=== PATIENT | male | born 1965 | race Caucasian/White ===

== ENCOUNTER 2018-12-06 12:47 | Inpatient (IN) | payer BC ==
[2018-12-06] MEDS ORDERED: SODIUM CHLORIDE 0.9% 1,000 ML IV ONE ×2 (13:34→13:40)
[2018-12-06] MEDS ORDERED: SODIUM CHLORIDE 0.9% 500 ML 500 ML IV ONE (13:40)
[2018-12-06] MEDS ORDERED: ONDANSETRON 4 MG/2 ML VIAL IVP STA (13:42)
--- NOTE | 2018-12-06 13:47 | ED ---
General Adult HPI - General Chief complaint: Dizziness Stated complaint: Vomiting & Diarrhea Time Seen by Provider: 12/06/18 13:00 Source: patient, RN notes reviewed Mode of arrival: wheelchair Limitations: no limitations - History of Present Illness Initial comments: This a 53-year-old male who presents emergency Department complaining of nausea vomiting diarrhea started yesterday. Patient states today he started having black stools as well as black vomitus. Patient states is also lightheaded when he stands. Patient states he has palpitations but he did not take his metoprolol for his A. fib today. Patient denies any fever or chills. Patient denies any abdominal pain. Patient denies chest pain difficulty breathing or shortness of breath. Patient denies any syncopal or near syncopal episode. - Related Data Home Medications Medication Instructions Recorded Confirmed Aspirin [[place] Aspirin EC] 81 mg PO DAILY 12/06/18 12/06/18 Metoprolol Succinate [Toprol XL] 50 mg PO DAILY 12/06/18 12/06/18 Allergies Allergy/AdvReac Type Severity Reaction Status Date / Time No Known Allergies Allergy Verified 12/06/18 13:22 Review of Systems ROS Statement: Those systems with pertinent positive or pertinent negative responses have been documented in the HPI. ROS Other: All systems not noted in ROS Statement are negative. Past Medical History Past Medical History: Atrial Fibrillation History of Any Multi-Drug Resistant Organisms: None Reported Past Surgical History: Adenoidectomy, Hernia Repair, Tonsillectomy Past Psychological History: No Psychological Hx Reported Smoking Status: Current every day smoker Past Alcohol Use History: None Reported Past Drug Use History: None Reported General Exam - General Exam Comments Initial Comments: GENERAL: Patient is well-developed and well-nourished. Patient is nontoxic and well- hydrated and is in mild distress. ENT: Neck is soft and supple. No significant lymphadenopathy is noted. Oropharynx is clear. Moist mucous membranes. Neck has full range of motion without eliciting any pain. EYES: The sclera were anicteric and conjunctiva were pink and moist. Extraocular movements were intact and pupils were equal round and reactive to light. Eyelids were unremarkable. PULMONARY: Unlabored respirations. Good breath sounds bilaterally. No audible rales rhonchi or wheezing was noted. CARDIOVASCULAR: There is a regular rate and rhythm without any murmurs gallops or rubs. ABDOMEN: Soft and nontender with normal bowel sounds. No palpable organomegaly was noted. There is no palpable pulsatile mass. SKIN: Skin is clear with no lesions or rashes and otherwise unremarkable. NEUROLOGIC: Patient is alert and oriented x3. Cranial nerves II through XII are grossly intact. Motor and sensory are also intact. Normal speech, volume and content. Symmetrical smile. MUSCULOSKELETAL: Normal extremities with adequate strength and full range of motion. No lower extremity swelling or edema. No calf tenderness. LYMPHATICS: No significant lymphadenopathy is noted PSYCHIATRIC: Normal psychiatric evaluation. Limitations: no limitations Course Vital Signs 12/06/18 12:56 Temperature 97.5 F L Pulse Rate 80 Respiratory 18 Rate Blood Pressure 94/66 O2 Sat by Pulse 100 Oximetry Medical Decision Making - Medical Decision Making EKG shows A. fib with rapid ventricular response at 152 bpm QRS is 68 QT interval is 290 QTC is 461. Patient's EKG shows no ST segment elevation or depression or T wave abnormalities are noted. I started the patient Cardizem because of his heart rate of 160 beats a minute. Patient was orthostatic positive psychiatric the patient another liter of fluid in addition to the 850 mL he received in route. Patient was guaiac positive Spoke with Dr. Salguero he agreed to admit the patient admitted the patient I did CBCs every 6 hours I consult the GI and cardiology. - Lab Data Result diagrams: 12/06/18 13:30 12/06/18 13:30 Lab Results 12/06/18 12/06/18 12/06/18 Range/Units 13:30 13:30 13:30 WBC 14.0 H (3.8-10.6) k/uL RBC 4.45 (4.30-5.90) m/uL Hgb 14.4 (13.0-17.5) gm/dL Hct 44.0 (39.0-53.0) % MCV 98.9 (80.0-100.0) fL MCH 32.4 (25.0-35.0) pg MCHC 32.8 (31.0-37.0) g/dL RDW 12.9 (11.5-15.5) % Plt Count 369 (150-450) k/uL Neutrophils % 81 % Lymphocytes % 13 % Monocytes % 4 % Eosinophils % 1 % Basophils % 0 % Neutrophils # 11.3 H (1.3-7.7) k/uL Lymphocytes # 1.8 (1.0-4.8) k/uL Monocytes # 0.6 (0-1.0) k/uL Eosinophils # 0.1 (0-0.7) k/uL Basophils # 0.1 (0-0.2) k/uL PT 11.0 (9.0-12.0) sec INR 1.0 (<1.2) APTT 23.3 (22.0-30.0) sec Sodium 139 (137-145) mmol/L Potassium 5.2 H (3.5-5.1) mmol/L Chloride 107 (98-107) mmol/L Carbon Dioxide 22 (22-30) mmol/L Anion Gap 10 mmol/L BUN 62 H (9-20) mg/dL Creatinine 0.85 (0.66-1.25) mg/dL Est GFR (CKD-EPI)AfAm >90 (>60 ml/min/1.73 sqM) Est GFR (CKD-EPI)NonAf >90 (>60 ml/min/1.73 sqM) Glucose 123 H (74-99) mg/dL Calcium 9.4 (8.4-10.2) mg/dL Magnesium 1.9 (1.6-2.3) mg/dL Total Bilirubin 0.7 (0.2-1.3) mg/dL AST 18 (17-59) U/L ALT 26 (21-72) U/L Alkaline Phosphatase 47 (38-126) U/L Troponin I (0.000-0.034) ng/mL Total Protein 6.8 (6.3-8.2) g/dL Albumin 3.9 (3.5-5.0) g/dL Stool Occult Blood (Negative) 12/06/18 12/06/18 Range/Units 13:30 15:05 WBC (3.8-10.6) k/uL RBC (4.30-5.90) m/uL Hgb (13.0-17.5) gm/dL Hct (39.0-53.0) % MCV (80.0-100.0) fL MCH (25.0-35.0) pg MCHC (31.0-37.0) g/dL RDW (11.5-15.5) % Plt Count (150-450) k/uL Neutrophils % % Lymphocytes % % Monocytes % % Eosinophils % % Basophils % % Neutrophils # (1.3-7.7) k/uL Lymphocytes # (1.0-4.8) k/uL Monocytes # (0-1.0) k/uL Eosinophils # (0-0.7) k/uL Basophils # (0-0.2) k/uL PT (9.0-12.0) sec INR (<1.2) APTT (22.0-30.0) sec Sodium (137-145) mmol/L Potassium (3.5-5.1) mmol/L Chloride (98-107) mmol/L Carbon Dioxide (22-30) mmol/L Anion Gap mmol/L BUN (9-20) mg/dL Creatinine (0.66-1.25) mg/dL Est GFR (CKD-EPI)AfAm (>60 ml/min/1.73 sqM) Est GFR (CKD-EPI)NonAf (>60 ml/min/1.73 sqM) Glucose (74-99) mg/dL Calcium (8.4-10.2) mg/dL Magnesium (1.6-2.3) mg/dL Total Bilirubin (0.2-1.3) mg/dL AST (17-59) U/L ALT (21-72) U/L Alkaline Phosphatase (38-126) U/L Troponin I 0.014 (0.000-0.034) ng/mL Total Protein (6.3-8.2) g/dL Albumin (3.5-5.0) g/dL Stool Occult Blood Positive (Negative) Critical Care Time Critical Care Time: Yes Total Critical Care Time: 35 Disposition Clinical Impression: Atrial fibrillation with rapid ventricular response, Orthostatic hypotension, GI bleed Disposition: ADMITTED IP TO THIS HOSP Referrals: Lj Ballesteros DO [Primary Care Provider] - 1-2 days Time of Disposition: 15:53
[2018-12-06 13:52] LABS: Basophils # (A) 0.1 k/uL (0-0.2); Basophils % (A) 0 %; Eosinophils # (A) 0.1 k/uL (0-0.7); Eosinophils % (A) 1 %; HGB 14.4 gm/dL (13.0-17.5); Lymphocytes # (A) 1.8 k/uL (1.0-4.8); Lymphocytes % (A) 13 %; MCH 32.4 pg (25.0-35.0); MCHC 32.8 g/dL (31.0-37.0); MCV 98.9 fL (80.0-100.0); Mean Platelet Volume 7.9; Monocytes # (A) 0.6 k/uL (0-1.0); Monocytes % (A) 4 %; Neutrophils # (A) 11.3 k/uL (1.3-7.7); Neutrophils % (A) 81 %; Platelet Count 369 k/uL (150-450); RBC 4.45 m/uL (4.30-5.90); RDW 12.9 % (11.5-15.5)
[2018-12-06 14:01] LABS: ALT 26 U/L (21-72); AST 18 U/L (17-59); Albumin 3.9 g/dL (3.5-5.0); Alkaline Phosphatase 47 U/L (38-126); Anion Gap 10 mmol/L; Blood Urea Nitrogen 62 mg/dL (9-20); Calcium 9.4 mg/dL (8.4-10.2); Carbon Dioxide 22 mmol/L (22-30); Chloride 107 mmol/L (98-107); Glucose 123 mg/dL (74-99); Magnesium 1.9 mg/dL (1.6-2.3); Sodium 139 mmol/L (137-145); Total Bilirubin 0.7 mg/dL (0.2-1.3); Total Protein 6.8 g/dL (6.3-8.2)
[2018-12-06 14:02] LABS: Partial Thromboplastin Time 23.3 sec (22.0-30.0)
[2018-12-06] MEDS: DILTIAZEM 125 MG in SODIUM CHLORIDE 0.9% 100 ML IV SCH (14:02)
[2018-12-06 14:08] LABS: Potassium 5.2 mmol/L (3.5-5.1)
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
[2018-12-06 22:25] LABS: Basophils % (A) 0 %; Eosinophils # (A) 0.1 k/uL (0-0.7); Eosinophils % (A) 1 %; HCT 34.3 % (39.0-53.0); HGB 11.7 gm/dL (13.0-17.5); Lymphocytes # (A) 3.4 k/uL (1.0-4.8); Lymphocytes % (A) 36 %; MCH 33.6 pg (25.0-35.0); MCHC 34.1 g/dL (31.0-37.0); MCV 98.7 fL (80.0-100.0); Mean Platelet Volume 8.1; Monocytes # (A) 0.5 k/uL (0-1.0); Monocytes % (A) 5 %; Neutrophils # (A) 5.4 k/uL (1.3-7.7); Neutrophils % (A) 56 %; Platelet Count 304 k/uL (150-450); RBC 3.48 m/uL (4.30-5.90); RDW 13.6 % (11.5-15.5); WBC 9.6 k/uL (3.8-10.6)
[2018-12-07] MEDS: PANTOPRAZOLE 40 MG/10 ML VIAL IVP SCH ×2 (01:50→09:02)
[2018-12-07 07:00] LABS: Basophils % (A) 0 %; Eosinophils # (A) 0.1 k/uL (0-0.7); Eosinophils % (A) 1 %; HCT 35.3 % (39.0-53.0); HGB 10.9 gm/dL (13.0-17.5); Lymphocytes # (A) 2.3 k/uL (1.0-4.8); Lymphocytes % (A) 29 %; MCH 31.3 pg (25.0-35.0); MCHC 30.8 g/dL (31.0-37.0); MCV 101.6 fL (80.0-100.0); Macrocytosis Slight; Mean Platelet Volume 7.5; Monocytes # (A) 0.4 k/uL (0-1.0); Monocytes % (A) 5 %; Neutrophils # (A) 4.9 k/uL (1.3-7.7); Neutrophils % (A) 63 %; Platelet Count 307 k/uL (150-450); RBC 3.48 m/uL (4.30-5.90); RDW 13.1 % (11.5-15.5); WBC 7.9 k/uL (3.8-10.6)
[2018-12-07 07:11] LABS: Anion Gap 3 mmol/L; Blood Urea Nitrogen 32 mg/dL (9-20); Calcium 8.5 mg/dL (8.4-10.2); Carbon Dioxide 26 mmol/L (22-30); Chloride 111 mmol/L (98-107); Glucose 92 mg/dL (74-99); Potassium 4.3 mmol/L (3.5-5.1); Sodium 140 mmol/L (137-145)
--- NOTE | 2018-12-07 08:54 | P.CRDCN ---
History of Present Illness History of present illness: This is Dr. Khan dictating a consult on this patient The patient was interviewed and examined by me IMPRESSION / ASSESSMENT: Patient presented with GI bleeding. His a history of atrial fibrillation and is on anticoagulation but denies any hypertension or coronary artery disease PLAN: GI workup Hold anticoagulation Watch for hypertension, TSH level, 2-D echo and Doppler study to assess cardiac structure and function Preliminary calculation of CUATE VASC or Rate control of atrial fibrillation to continue. Currently on IV Cardizem drip HPI Patient presented to the ER with nausea vomiting diarrhea and black stools and black vomitus. He was lightheaded when he stood up. He complained of palpitations but he did not take his metoprolol for atrial fibrillation. He was diagnosed with atrial fibrillation RVR and orthostatic hypotension and hematocrit for GI bleeding According to the patient he was vomiting very dark material is normal and was also passing Dr. stools. He had severe abdominal discomfort predominantly in the left side about a week back Denies any chest discomfort or undue shortness of breath but he was Diffley dizzy and weak for the last 2-3 days ROS: No fever chills or rigors, no cough, phlegm or expectoration, no nausea, vomiting or diarrhea, no hematuria, dysuria, no musculoskeletal complaints, no strokes or seizures, no skin lesions. EXAMINATION: Breath sounds are clear no rhonchi no crackles rhythm is irregular Normal S1 normal S2 no murmurs or gallops no rub Abdomen is soft there's no tenderness at this time Extremities warm no edema No orthopnea PND REVIEW OF LABS, ECG & MEDICAL DATA twelve-lead ECG shows atrial fibrillation with RVR at 152 beats a minute Chest x-ray does not show any acute cardiac pulmonary process according to the report Hemoglobin 11.7, potassium 4.3, BUN 32 creatinine 0.81, normal troponin Past Medical History Past Medical History: Atrial Fibrillation History of Any Multi-Drug Resistant Organisms: None Reported Past Surgical History: Adenoidectomy, Hernia Repair, Tonsillectomy Past Psychological History: No Psychological Hx Reported Smoking Status: Current every day smoker Past Alcohol Use History: None Reported Past Drug Use History: None Reported Medications and Allergies Home Medications Medication Instructions Recorded Confirmed Type Aspirin [[place] Aspirin EC] 81 mg PO DAILY 12/06/18 12/06/18 History Metoprolol Succinate [Toprol XL] 50 mg PO DAILY 12/06/18 12/06/18 History Allergies Allergy/AdvReac Type Severity Reaction Status Date / Time No Known Allergies Allergy Verified 12/06/18 13:22 Physical Exam Vitals: Vital Signs Temp Pulse Pulse Resp BP BP Pulse Ox 12/07/18 04:49 98.3 F 83 18 98/60 98 12/07/18 00:11 95 18 97/65 98 12/06/18 20:04 98.6 F 18 102/68 98 12/06/18 18:36 112 H 18 98/73 98 12/06/18 18:00 113 H 16 97/66 97 12/06/18 17:15 99 21 100/67 100 12/06/18 17:00 112 H 19 96/81 98 12/06/18 16:45 106 H 22 100/80 100 12/06/18 16:30 96 17 97/72 99 12/06/18 16:15 121 H 18 104/74 97 12/06/18 16:00 107 H 20 111/67 98 12/06/18 15:45 138 H 18 112/73 99 12/06/18 15:30 129 H 17 112/73 99 12/06/18 15:15 115 H 22 116/95 100 12/06/18 15:00 113 H 22 100 12/06/18 14:45 140 H 20 111/81 98 12/06/18 14:30 120 H 18 100 12/06/18 14:15 144 H 16 99 12/06/18 14:00 123 H 19 100 12/06/18 13:45 140 H 20 98/80 100 12/06/18 13:30 165 H 18 104/74 99 12/06/18 13:20 147 H 18 104/74 98 12/06/18 12:56 97.5 F L 80 18 94/66 100 Intake and Output 12/06/18 12/07/18 12/07/18 22:59 06:59 14:59 Intake Total 120 Output Total 600 Balance -480 Intake: Oral 120 Output: Urine 600 Other: # Voids 2 Weight 77.1 kg Results 12/07/18 06:40 12/07/18 06:40 Cardiac Enzymes 12/06/18 12/06/18 Range/Units 13:30 13:30 AST 18 (17-59) U/L Troponin I 0.014 (0.000-0.034) ng/mL Coagulation 12/06/18 Range/Units 13:30 PT 11.0 (9.0-12.0) sec APTT 23.3 (22.0-30.0) sec CBC 12/06/18 12/06/18 Range/Units 13:30 21:55 WBC 14.0 H 9.6 (3.8-10.6) k/uL RBC 4.45 3.48 L (4.30-5.90) m/uL Hgb 14.4 11.7 L (13.0-17.5) gm/dL Hct 44.0 34.3 L (39.0-53.0) % Plt Count 369 304 (150-450) k/uL Comprehensive Metabolic Panel 12/06/18 12/07/18 Range/Units 13:30 06:40 Sodium 139 140 (137-145) mmol/L Potassium 5.2 H 4.3 (3.5-5.1) mmol/L Chloride 107 111 H (98-107) mmol/L Carbon Dioxide 22 26 (22-30) mmol/L BUN 62 H 32 H (9-20) mg/dL Creatinine 0.85 0.81 (0.66-1.25) mg/dL Glucose 123 H 92 (74-99) mg/dL Calcium 9.4 8.5 (8.4-10.2) mg/dL AST 18 (17-59) U/L ALT 26 (21-72) U/L Alkaline Phosphatase 47 (38-126) U/L Total Protein 6.8 (6.3-8.2) g/dL Albumin 3.9 (3.5-5.0) g/dL Current Medications Generic Name Dose Route Start Last Admin Trade Name Freq PRN Reason Stop Dose Admin Diltiazem HCl 125 mg/ Sodium 125 mls @ 5 mls/hr 12/06/18 13:45 12/06/18 14:02 Chloride IV 5 mg/hr .Q24H EARL 5 mls/hr Administration 5 MG/HR Metoprolol Succinate 50 mg 12/07/18 09:00 Toprol Xl PO DAILY EARL Pantoprazole Sodium 40 mg 12/07/18 00:45 12/07/18 01:50 Protonix IVP 40 mg DAILY EARL Administration Intake and Output 12/06/18 12/07/1812/07/19 22:59 06:59 14:59 Intake Total 120 Output Total 600 Balance -480 Intake: Oral 120 Output: Urine 600 Other: # Voids 2 Weight 77.1 kg 12/06/18 21:55 12/07/18 06:40
[2018-12-07] MEDS: METOPROLOL SUCCINATE (ER) 50 MG TAB.ER.24H PO SCH (09:02)
[2018-12-07] MEDS: DILTIAZEM 125 MG in SODIUM CHLORIDE 0.9% 100 ML IV SCH (09:02)
--- NOTE | 2018-12-07 12:58 | ECHOF ---
Referral Reason:afib MEASUREMENTS -------- HEIGHT: 193.0 cm WEIGHT: 76.7 kg BP: 98/60 RVIDd: 2.7 cm (< 3.3) IVSd: 1.3 cm (0.6 - 1.1) LVIDd: 3.8 cm (3.9 - 5.3) LVPWd: 1.3 cm (0.6 - 1.1) IVSs: 1.6 cm LVIDs: 2.7 cm LVPWs: 1.6 cm LAESV Index (A-L): 34.38 ml/m Ao Diam: 2.9 cm (2.0 - 3.7) AV Cusp: 1.9 cm (1.5 - 2.6) LA Diam: 3.0 cm (2.7 - 3.8) EPSS: 0.2 cm RAP: 5.00 mmHg RVSP: 37.13 mmHg MV EF SLOPE: 123.09 mm/s (70 - 150) MV EXCURSION: 1.89 cm (> 18.000) FINDINGS -------- Atrial fibrillation. This was a technically good study. The left ventricular size is normal. There is mild concentric left ventricular hypertrophy. Overa ll left ventricular systolic function is low-normal with, an EF between 50 - 55 %. A tubular struct ure noted running posterior laterally to the left atrium and seemed to be connected to the right atri um. This most probably a venous structure suggestive of persistent left superior vena cava or mcghee ry sinus. The right ventricle is normal in size and function. LA is moderately dilated 34-39 ml/m2 Thin echo bright structure in left atrium near left atrial prudencio endage. RA appears enlarged. Aortic valve is trileaflet and is mildly thickened. There is no evidence of aortic regurgitation. There is no evidence of aortic stenosis. The mitral valve leaflets are mildly thickened. Mild mitral regurgitation is present. Moderate to severe tricuspid regurgitation present. There is mild pulmonary hypertension. The rig ht ventricular systolic pressure, as measured by Doppler, is 37.13mmHg. Trace/mild (physiologic) pulmonic regurgitation. The aortic root size is normal. Normal inferior vena cava with normal inspiratory collapse consistent with estimated right atrial pre ssure of 5 mmHg. There is no pericardial effusion. CONCLUSIONS -------- 1. Atrial fibrillation. 2. This was a technically good study. 3. The left ventricular size is normal. 4. There is mild concentric left ventricular hypertrophy. 5. Overall left ventricular systolic function is low-normal with, an EF between 50 - 55 %. 6. A tubular structure noted running posterior laterally to the left atrium and seemed to be connecte d to the right atrium. This most probably a venous structure suggestive of persistent left superior vena cava or coronary sinus. 7. LA is moderately dilated 34-39 ml/m2 8. Thin echo bright structure in left atrium near left atrial appendage. 9. RA appears enlarged. 10. Aortic valve is trileaflet and is mildly thickened. 11. The mitral valve leaflets are mildly thickened. 12. Mild mitral regurgitation is present. 13. Moderate to severe tricuspid regurgitation present. 14. There is mild pulmonary hypertension. 15. The right ventricular systolic pressure, as measured by Doppler, is 37.13mmHg. 16. Trace/mild (physiologic) pulmonic regurgitation. 17. The aortic root size is normal. 18. There is no pericardial effusion. INSTRUCTOR FLYING: Hima Manuel RDCS
--- NOTE | 2018-12-07 21:50 | P.HPIM ---
History of Present Illness H&P Date: 12/06/18 Chief Complaint: Diarrhea and coffee-ground emesis Patient is a 53-year-old male with a known history of paroxysmal atrial fibrillation on aspirin currently came to ER with complaints of nausea and vomiting and diarrhea since yesterday. Patient has been having darker stools and also vomiting is dark-colored/coffee-ground colored. Patient denied any complaints of chest pain. Patient has been having palpitations and lightheadedness especially when he stands and started having vomiting when he went to work today. Denied any current fever or chills. No complaints of s hortness of breath. Denied any fall or syncopal episode. Patient did have cough last week and stopped about 3-4 days ago. No other recent infections. No recent antibiotic use. Patient does smoke on everyday basis. d Review of Systems Constitutional: Patient denies any fever or chills . No generalized weakness or weight loss. Abdomen: Patient denied nausea vomiting and diarrhea and abdominal pain. Cardiovascular: Patient denied any chest pain. No shortness of breath. Patient does have palpitations. Lightheadedness. No legs leg swelling Respiratory: patient denied any cough is from production. No shortness of breath Neurologic: Patient denied any numbness or tingling headache. Musculoskeletal: Patient denies any complaints of joint swelling or deformity. Skin: Negative Psychiatric: Negative Endocrine: No heat or cold intolerance. No recent weight gain. Genitourinary: No dysuria or hematuria. All other 14 point ROS negative except the above Past Medical History Past Medical History: Atrial Fibrillation History of Any Multi-Drug Resistant Organisms: None Reported Past Surgical History: Adenoidectomy, Hernia Repair, Tonsillectomy Past Psychological History: No Psychological Hx Reported Smoking Status: Current every day smoker Past Alcohol Use History: None Reported Past Drug Use History: None Reported Medications and Allergies Home Medications Medication Instructions Recorded Confirmed Type Aspirin [[place] Aspirin EC] 81 mg PO DAILY 12/06/18 12/06/18 History Metoprolol Succinate [Toprol XL] 50 mg PO DAILY 12/06/18 12/06/18 History Allergies Allergy/AdvReac Type Severity Reaction Status Date / Time No Known Allergies Allergy Verified 12/06/18 13:22 Physical Exam Vitals: Vital Signs Temp Pulse Resp BP Pulse Ox 12/06/18 18:36 112 H 18 98/73 98 04/01/19 18:00 113 H 16 97/66 97 12/06/18 17:15 99 21 100/67 100 12/06/18 17:00 112 H 19 96/81 98 12/06/18 16:45 106 H 22 100/80 100 12/06/18 16:30 96 17 97/72 99 12/06/18 16:15 121 H 18 104/74 97 12/06/18 16:00 107 H 20 111/67 98 12/06/18 15:45 138 H 18 112/73 99 12/06/18 15:30 129 H 17 112/73 99 12/06/18 15:15 115 H 22 116/95 100 12/06/18 15:00 113 H 22 100 12/06/18 14:45 140 H 20 111/81 98 12/06/18 14:30 120 H 18 100 12/06/18 14:15 144 H 16 99 12/06/18 14:00 123 H 19 100 12/06/18 13:45 140 H 20 98/80 100 12/06/18 13:30 165 H 18 104/74 99 12/06/18 13:20 147 H 18 104/74 98 12/06/18 12:56 97.5 F L 80 18 94/66 100 Intake and Output 12/06/18 12/06/18 12/06/18 06:59 14:59 22:59 Other: Weight 83.915 kg PHYSICAL EXAMINATION: Patient is lying in the bed comfortably, no acute distress, awake alert and oriented. Lethargic and weak. HEENT: Normocephalic. Neck is supple. Pupils reactive. Nostrils clear. Oral cavity is moist. Ears reveal no drainage. Neck reveals no JVD, carotid bruits, or thyromegaly. CHEST EXAMINATION: Trachea is central. Symmetrical expansion. Lung carty clear to auscultation and percussion. CARDIAC: Normal S1, S2 with no gallops. No murmurs . Irregular rhythm ABDOMEN: Soft. Bowel sounds normal. No organomegaly. No abdominal bruits. Extremities: reveal no edema. No clubbing or cyanosis Neurologically awake, alert, oriented x3 with well-coordinated movements. No focal deficits noted Skin: No rash or skin lesions. Psychiatric: Coperative. Nonsuicidal Musculoskeletal: No joint swelling or deformity. Normal range of motion. Results CBC & Chem 7: 12/07/18 06:40 12/07/18 06:40 Labs: Abnormal Lab Results - Last 24 Hours (Table) 12/06/18 12/06/18 Range/Units 13:30 13:30 WBC 14.0 H (3.8-10.6) k/uL Neutrophils # 11.3 H (1.3-7.7) k/uL Potassium 5.2 H (3.5-5.1) mmol/L BUN 62 H (9-20) mg/dL Glucose 123 H (74-99) mg/dL Thrombosis Risk Factor Assmnt - DVT/VTE Prophylaxis DVT/VTE Prophylaxis: Pharmacologic Prophylaxis ordered Assessment and Plan Assessment: Acute GI bleed with dark colored vomiting and dark stools. Acute blood loss anemia Atrial fibrillation with rapid ventricular rate. Paroxysmal atrial fibrillation on aspirin at home Mild hyperkalemia likely due to GI bleed DVT prophylaxis with SCDs Plan: Patient will be continued on IV hydration with normal saline. On Cardizem drip and was also started on Protonix IV daily. Patient will be started back on metoprolol XL 50 mg daily. Patient is noncompliant with medications at home. Will hold aspirin. Not sure if patient is taking any other anticoagulants. Follow up closely monitor H&H. GI and cardiology will be consulted. Further recommendations based on the clinical course. Smoking cessation has been counseled extensively. Time with Patient: Greater than 30
--- NOTE | 2018-12-07 22:53 | P.CONS ---
History of Present Illness - Reason for Consult Consult date: 12/07/18 GI bleed Requesting physician: Valentin Salguero - Chief Complaint Nausea, vomiting, diarrhea - History of Present Illness 63-year-old male with a medical history significant for atrial fibrillation who presented with complaints of nausea, vomiting and diarrhea. The patient reports passing dark black vomitus on numerous occasions. He is unclear if the vomit was initially normal in color and then turn black or was dark initially. He also reports multiple bowel movements which were dark and black without any gross blood seen. No bowel movements reported today. He denies any prior history of ulcers or regular NSAID use. He denies any history of anemia. He denies any abdominal pain. No familial history of GI tract malignancies. The patient denies ever requiring an upper endoscopy or colonoscopy in the past. On presentation to the hospital stool was positive for occult blood, hemoglobin was 11.7 and subsequently trended to 10.9. INR was found to be 1, alkaline phosphatase 47, total bilirubin 0.7, AST 18 and ALT 26. Review of Systems REVIEW OF SYSTEMS: CONSTITUTIONAL: Denies any fevers, chills, weight change or fatigue. CARDIOVASCULAR: Denies any chest pain, palpitations high or low blood pressures RESPIRATORY: Denies any shortness of breath, hemoptysis or cough. GENITOURINARY: No dysuria or hematuria. MUSCULOSKELETAL: No weakness reported. SKIN: Denies any new rashes or lesions, jaundice or pallor. PSYCHIATRIC: Denies any depression or anxiety. NEUROLOGY: Denies headache, denies any new focal deficits. EARS/NOSE/THROAT: No recent hearing change, congestion, nasal discharge or sore throat. EYES: No pain in eyes, discharge or change in vision. GASTROINTESTINAL: As per HPI. Past Medical History Past Medical History: Atrial Fibrillation History of Any Multi-Drug Resistant Organisms: None Reported Past Surgical History: Adenoidectomy, Hernia Repair, Tonsillectomy Past Psychological History: No Psychological Hx Reported Smoking Status: Current every day smoker Past Alcohol Use History: None Reported Past Drug Use History: None Reported Additional History: Family history: Reviewed with the patient and noncontributory to current medical presentation. Medications and Allergies Home Medications Medication Instructions Recorded Confirmed Type Aspirin [Orange Aspirin EC] 81 mg PO DAILY 12/06/18 12/06/18 History Metoprolol Succinate [Toprol XL] 50 mg PO DAILY 12/06/18 12/06/18 History Allergies Allergy/AdvReac Type Severity Reaction Status Date / Time No Known Allergies Allergy Verified 12/06/18 13:22 Physical Exam Vitals: Vital Signs Temp Pulse Pulse Resp BP Pulse Ox 12/07/18 20:00 98.8 F 79 80 17 98/58 98 12/07/18 16:41 85 16 105/65 12/07/18 16:02 100 12/07/18 15:36 80 18 12/07/18 15:34 97.7 F 80 18 94/54 100 12/07/18 12:16 98 12/07/18 12:00 98.0 F 83 18 100/61 98 12/07/18 08:00 98.2 F 81 80 18 96/60 98 12/07/18 04:49 98.3 F 83 18 98/60 98 12/07/18 00:11 95 18 97/65 98 Intake and Output 12/07/18 12/07/18 12/07/18 06:59 14:59 22:59 Intake Total 747 956 1785 Output Total 600 400 Balance -480 -195 1010 Intake: IV 10 10 Invasive Line 1 10 10 Intake, IV Titration 95 Amount Diltiazem 125 mg In 95 Sodium Chloride 0.9% 100 ml @ 5 MG/HR 5 mls/hr IV .Q24H [facility] Rx#:[id number] Oral [phone] Output: Urine 600 400 Other: Voiding Method Toilet # Voids 2 1 Weight 77.1 kg On physical examination, patient appears comfortable in no apparent distress. HEAD: Normocephalic, atraumatic. EYES: No scleral icterus. No conjunctival injection. MOUTH: No lesions, tongue midline. NECK: Trachea midline, no gross abnormalities. CHEST: Clear to auscultation with no wheezing or rhonchi appreciated. HEART: S1-S2 appreciated. ABDOMEN: Soft, obese. Bowel sounds are positive. No organomegaly. No guarding or rigidity. EXTREMITIES: No pedal edema. SKIN: No rashes, no jaundice. NEUROLOGIC: Alert and oriented x3. No focal deficits. Results CBC & Chem 7: 12/07/18 06:40 12/07/18 06:40 Labs: Abnormal Lab Results - Last 24 Hours (Table) 12/07/18 12/07/18 Range/Units 06:40 06:40 RBC 3.48 L (4.30-5.90) m/uL Hgb 10.9 L (13.0-17.5) gm/dL Hct 35.3 L (39.0-53.0) % MCV 101.6 H (80.0-100.0) fL MCHC 30.8 L (31.0-37.0) g/dL Chloride 111 H (98-107) mmol/L BUN 32 H (9-20) mg/dL Chest x-ray: report reviewed (X-ray chest with no acute process noted.) Assessment and Plan (1) GI bleed Narrative/Plan: 53-year-old male presenting with multiple episodes of dark emesis and dark colored stool with concern for upper GI bleed with differential including peptic ulcer disease, esophagitis/gastritis, AVM or other etiology. Current Visit: Yes Status: Acute Code(s): K92.2 - GASTROINTESTINAL HEMORRHAGE, UNSPECIFIED SNOMED Code(s): 34576606 (2) Anemia associated with acute blood loss Current Visit: Yes Status: Acute Code(s): D62 - ACUTE POSTHEMORRHAGIC ANEMIA SNOMED Code(s): 171066618 Plan: Supportive care Clear liquid diet, nothing by mouth after midnight Continue to monitor hemoglobin and hematocrit and transfuse as needed Continue to monitor further signs or symptoms of GI bleeding Avoid NSAID use Plan for upper endoscopy tomorrow for further evaluation Patient will need to follow-up for colonoscopy in the outpatient setting Thank you for allowing us to participate in the care of the patient we will continue to follow
[2018-12-08 07:20] LABS: HCT 31.8 % (39.0-53.0); HGB 10.1 gm/dL (13.0-17.5); MCH 32.3 pg (25.0-35.0); MCHC 31.9 g/dL (31.0-37.0); MCV 101.2 fL (80.0-100.0); Macrocytosis Slight; Mean Platelet Volume 7.4; Platelet Count 292 k/uL (150-450); RBC 3.14 m/uL (4.30-5.90); RDW 13.1 % (11.5-15.5); WBC 8.6 k/uL (3.8-10.6)
[2018-12-08 07:31] LABS: Anion Gap 5 mmol/L; Blood Urea Nitrogen 15 mg/dL (9-20); Calcium 8.7 mg/dL (8.4-10.2); Carbon Dioxide 28 mmol/L (22-30); Chloride 106 mmol/L (98-107); Glucose 95 mg/dL (74-99); Potassium 4.4 mmol/L (3.5-5.1); Sodium 139 mmol/L (137-145)
[2018-12-08] MEDS ORDERED: PANTOPRAZOLE 40 MG/10 ML VIAL IVP SCH (09:00)
[2018-12-08] MEDS: METOPROLOL SUCCINATE (ER) 50 MG TAB.ER.24H PO SCH (09:12)
--- NOTE | 2018-12-08 11:56 | ECHOF ---
Referral Reason:bubble study MEASUREMENTS -------- HEIGHT: 193.0 cm WEIGHT: 76.7 kg BP: FINDINGS -------- Sinus rhythm. Injection of the contrast saline bubbles, showed bubbles traveling across the tubular structure into the right atrium. These findings are consistent with persistent left superior vena c lilliam. This was a technically good study. Limited Study for evaluation of agitated saline. Contrast study was performed with 2 iv injections of 8 ccs of agitated normal saline. CONCLUSIONS -------- 1. Sinus rhythm. 2. Injection of the contrast saline bubbles, showed bubbles traveling across the tubular structure in to the right atrium. These findings are consistent with persistent left superior vena cava. 3. This was a technically good study. 4. Limited Study for evaluation of agitated saline. 5. Contrast study was performed with 2 iv injections of 8 ccs of agitated normal saline. HYDROGRAPHY TEACHER: Hima Manuel RDCS
[2018-12-08] MEDS: DILTIAZEM 125 MG in SODIUM CHLORIDE 0.9% 100 ML IV SCH (12:37)
[2018-12-08] MEDS ORDERED: PROPOFOL 10 MG/ML 20 ML VIAL IV ONE (14:05)
[2018-12-08] MEDS ORDERED: IV FLUID CONTINUATION 1,000 ML IV ONE (14:06)
--- NOTE | 2018-12-08 14:29 | P.PN ---
Subjective Progress Note Date: 12/08/18 This is a 53-year-old gentleman who presented to the hospital with GI bleeding, he has a known history of atrial fibrillation and is on anticoagulation. His chads fast score is actually 0, and therefore does not require anticoagulation at this point in time. Echocardiogram with Doppler study was performed which revealed an ejection fraction of 55-60%, mild MR and mild aortic stenosis with tricuspid regurg. Blood pressure 95/58 with a heart rate in the 80s, 97% on room air. White blood cell count 8.6, hemoglobin 10.1, platelet count 292. Sodium 139, potassium 4.4, BUN 15 and creatinine 0.8. At this point in time anticoagulation had been placed on hold. Regardless. The patient will just be discharged home on aspirin once his GI workup has been completed. Heart rate being maintained in the 70s to 80s, blood pressure 95/58. Objective - Vital Signs Vital signs: Vital Signs Temp 98.7 F 12/08/18 08:30 Pulse 84 12/08/18 08:30 Resp 17 12/08/18 08:30 BP 95/58 12/08/18 08:30 Pulse Ox 97 12/08/18 08:30 Intake & Output 12/07/18 12/08/18 12/08/18 18:59 06:59 18:59 Intake Total 215 1720 125 Output Total 400 Balance -185 1720 125 Weight 77 kg Intake: IV 20 220 Invasive Line 1 20 NS 220 Intake, IV Titration 95 125 Amount Diltiazem 125 mg In 95 125 Sodium Chloride 0.9% 100 ml @ 5 MG/HR 5 mls/hr IV .Q24H [facility] Rx#:[id number] Oral 100 1500 Output: Urine 400 Other: Voiding Method Toilet # Voids 1 1 - Exam Breath sounds are clear no rhonchi no crackles rhythm is irregular Normal S1 normal S2 no murmurs or gallops no rub Abdomen is soft there's no tenderness at this time Extremities warm no edema No orthopnea PND - Labs CBC & Chem 7: 12/08/18 06:37 12/08/18 06:37 Labs: Abnormal Lab Results - Last 24 Hours (Table) 12/08/18 Range/Units 06:37 RBC 3.14 L (4.30-5.90) m/uL Hgb 10.1 L (13.0-17.5) gm/dL Hct 31.8 L (39.0-53.0) % MCV 101.2 H (80.0-100.0) fL Assessment and Plan Plan: Assessment and plan #1 Acute GI bleed with dark colored vomiting and dark stools. #2 Acute blood loss anemia #3 Atrial fibrillation with rapid ventricular rate. Chronic persistent #4 Mild hyperkalemia likely due to GI bleed Plan Echocardiogram with Doppler study revealed a normal left ventricular systolic function, patient's chadsVasc score is 0 and therefore does not require anticoagulation. DNP note has been reviewed, I agree with a documented findings and plan of care. Patient was seen and examined.
--- NOTE | 2018-12-08 14:33 | P.PCN ---
Date of Procedure: 12/08/18 Description of Procedure: BRIEF HISTORY: 63-year-old male with a medical history significant for atrial fibrillation who presented with complaints of nausea, vomiting and diarrhea. The patient reports passing dark black vomitus on numerous occasions. He is unclear if the vomit was initially normal in color and then turn black or was dark initially. He also reports multiple bowel movements which were dark and black without any gross blood seen. No bowel movements reported today. He denies any prior history of ulcers or regular NSAID use. He denies any history of anemia. He denies any abdominal pain. No familial history of GI tract malignancies. The patient denies ever requiring an upper endoscopy or colonoscopy in the past. On presentation to the hospital stool was positive for occult blood, hemoglobin was 11.7 and subsequently trended to 10.9. INR was found to be 1, alkaline phosphatase 47, total bilirubin 0.7, AST 18 and ALT 26. PROCEDURE PERFORMED: Esophagogastroduodenoscopy with biopsy. PREOPERATIVE DIAGNOSIS: Anemia of acute blood loss, coffee-ground emesis, melena. ESTIMATED BLOOD LOSS: Minimal. IV sedation per anesthesia. PROCEDURE: After informed consent was obtained, the patient was brought into the endoscopy unit. IV sedation was administered by Anesthesia under continuous monitoring. Initially the Olympus GIF-190 video endoscope was inserted into the mouth. Esophagus intubated without any difficulty. It was gradually advanced into the stomach and duodenum and carefully examined. The bulb and the second part of the duodenum appeared normal, with biopsies taken. The scope at this time was withdrawn to the stomach, adequately insufflated with air, and upon careful examination, mucosa of the antrum, body, cardia and the fundus was significant for a nonbleeding antral ulcer without high-risk stigmata for rebleeding noted with biopsies of the ulcer taken. Mild scattered inflammation of the antrum body also seen suggestive of mild gastritis with biopsies of antrum and body taken. The scope was then withdrawn into the esophagus. The GE junction was located at 40 cm from the incisors. The esophagus appeared normal. There were no erosions or ulcerations seen and the patient tolerated the procedure well. IMPRESSION: 1. Nonbleeding antral ulcer, biopsied. 2. Mild gastritis antrum and body, biopsied. 3. Duodenal biopsies. RECOMMENDATIONS: The findings of this examination were discussed with the patient. Okay to resume diet. Continue monitor hemoglobin and hematocrit and transfuse as needed. Will discharge patient on twice daily Protonix therapy. Repeat EGD in 6-8 weeks to check for ulcer healing. Avoid NSAID use. Await results of pathology.
[2018-12-08 15:38] VITALS: RESP 16; TEMP 98.2
[2018-12-08 16:48] VITALS: BP 96/65; PULSE 81
== END 2018-12-08 17:13 | disposition home or self-care (01) | DRG 378 ==
LOC: EC 12:47 → 3SCARD 15:54
PROVIDERS: ADMIT Internal Medicine; ATTEND Internal Medicine
PROC: 0DB78ZX Excision of Stomach, Pylorus, Via Natural or Artificial Opening Endoscopic, Diagnostic (ICD-10-PCS; 2018-12-08)
PROC: 0DB98ZX Excision of Duodenum, Via Natural or Artificial Opening Endoscopic, Diagnostic (ICD-10-PCS; principal; 2018-12-08 09:20)
DX: K25.4 Chronic or unspecified gastric ulcer with hemorrhage (principal); D62 Acute posthemorrhagic anemia; E87.5 Hyperkalemia; Z71.6 Tobacco abuse counseling; F17.210 Nicotine dependence, cigarettes, uncomplicated; I08.3 Combined rheumatic disorders of mitral, aortic and tricuspid valves; I48.0 Paroxysmal atrial fibrillation; I95.1 Orthostatic hypotension; K29.70 Gastritis, unspecified, without bleeding; Z79.82 Long term (current) use of aspirin; Z79.899 Other long term (current) drug therapy; T44.7X6A Underdosing of beta-adrenoreceptor antagonists, initial encounter
CPT/HCPCS: 36415; 43239; 71046; 80048; 80053; 82272; 83735; 84443; 84484; 85025; 85027; 85610; 85730; 86850; 86900; 86901; 93005; 93306; 93308; 94760; 96365; 96366; 96375; 99285